=== PATIENT | male | born 2000 | race Caucasian/White ===

== ENCOUNTER 2018-09-10 14:57 | Emergency (ER) | payer BC ==
[~2018-09-10] VITALS: Ht 188 cm; Wt 104.4 kg
[2018-09-10 15:05] VITALS: Ht 188 cm; Wt 104.4 kg
[2018-09-10 19:15] VITALS: BP 147/82
== END 2018-09-10 19:15 | disposition home or self-care (01) ==
LOC: ED 14:57
DX: R07.89 Other chest pain (principal); R00.2 Palpitations; R06.4 Hyperventilation; F41.9 Anxiety disorder, unspecified